=== PATIENT | male | born 1980 | race Caucasian/White ===

== ENCOUNTER 2019-12-06 15:46 | Emergency (ER) | payer MEDICARE ==
[~2019-12-06] VITALS: Ht 193 cm; Wt 101.6 kg
--- NOTE | 2019-12-06 16:13 | NUR ---
DR ADRIAN AT BEDSIDE FOR EVAL.
--- NOTE | 2019-12-06 16:30 | NUR ---
PT TO RADIOLOGY FOR HEAD CT SCAN VIA [facility].
--- NOTE | 2019-12-06 18:48 | NUR ---
SEEN AND EVALUATED BY DR ADRIAN. Patient discharged to home in stable condition. Written and verbal after care instructions given. Patient verbalizes understanding of instruction.
[2019-12-06 18:49] VITALS: BP 132/81
== END 2019-12-06 18:49 | disposition home or self-care (01) ==
LOC: ER 16:20
DX: S02.2XXA Fracture of nasal bones, initial encounter for closed fracture (principal); S09.8XXA Other specified injuries of head, initial encounter; R51 Headache; V49.59XA Passenger injured in collision with other motor vehicles in traffic accident, initial encounter; Y93.89 Activity, other specified; Y92.488 Other paved roadways as the place of occurrence of the external cause; Y99.8 Other external cause status
CPT/HCPCS: 70450; 99284; A6403